=== PATIENT | female | born 1975 ===

== ENCOUNTER 2025-06-07 08:19 | Outpatient (CLI) | payer OTHER ==
[~2025-06-07 08:19] MED LIST: ALEVE220 M1; TRANEXAMIC ACI650 MG
== END 2025-06-07 10:12 | disposition home or self-care (01) ==
LOC: LAB 08:19
PROVIDERS: ATTEND Anesthesiology
DX: Z32.00 Encounter for pregnancy test, result unknown (principal)

== ENCOUNTER 2025-06-07 12:15 | Day surgery (SDC) | payer OTHER ==
[2025-05-29 09:04] LABS: BASO % 1.3 % (0.1-1.2); EOS # 0.11 (0.04-0.54); EOS % 2.4 % (0.7-7.0); LYMPH # 1.33 (1.18-3.74); LYMPH % 29.5 % (19.3-53.1); MEAN PLATELET VOLUME 10.90 fl (9.4-12.4); MONO # 0.40 (0.24-0.82); MONO % 8.9 % (4.7-12.5); NEUT # 2.60 (1.56-6.13); NEUT % 57.7 % (34.0-71.1); RED CELL DISTRIBUTION WIDTH 12.9 % (11.6-14.4)
[2025-05-29 09:28] LABS: INR 0.97
[2025-05-29 09:49] LABS: ALT/SGPT 42.0 U/L (12-78); AST/SGOT 27.0 U/L (15-37); BILIRUBIN TOTAL 1.38 mg/dL (0.3-1.2); BUN CREA RATIO 19.0 (7.0-25.0); CREATININE SERUM 0.7 mg/dL (0.55-1.02); GFR 89.31; GLOBULINA 3.4 G/DL (2.4-3.5); GLUCOSE FASTING 101.0 mg/dL (65-100); OSMOLALITY SERUM 282.0 MOSM/KG (275-295)
[2025-05-29 10:07] LABS: URINE APPEARANCE Clear; URINE BILIRRUBIN Negative (NEGATIVE); URINE BLOOD Trace; URINE COLOR Yellow; URINE GLUCOSE Negative (NEGATIVE); URINE KETONE Negative (NEGATIVE); URINE LEUKOCYTE Negative; URINE NITRATE Negative; URINE PROTEIN Negative (NEGATIVE); URINE UROBILINOGEN 0.2 E.U./dl
[2025-05-29 10:09] LABS: URINE BACTERIA 33.5 uL (0.0-1933); URINE EPITHELIAL CELLS 3.8 uL (0.0-38.8)
[2025-05-29 10:25] LABS: URINE CAST 0.00 uL (0.0-1.40); URINE RBC 0.7 uL (0.0-20.8); URINE WBC 1.3 uL (0.0-23.2)
[2025-06-07] MEDS ORDERED: POVIDONE-IODINE 118 ML BOTT TOP ONE (13:13)
[2025-06-07] MEDS ORDERED: CHLORHEXIDINE GLUCONATE 120 ML BOTTLE TOP ONE (13:13)
[2025-06-07] MEDS ORDERED: KETOROLAC TROMETHAMINE 30 MG VIAL IV STA (15:05)
[2025-06-07] MEDS ORDERED: KETOROLAC TROMETHAMINE 30 MG VIAL ONE (20:23)
== END 2025-06-07 20:50 | disposition home or self-care (01) ==
LOC: CIR.AMB 12:15
PROVIDERS: ATTEND Obstetrics & Gynecology
DX: N84.1 Polyp of cervix uteri (principal); D25.0 Submucous leiomyoma of uterus; N84.0 Polyp of corpus uteri; N93.8 Other specified abnormal uterine and vaginal bleeding